=== PATIENT | female | born 1945 | race African-American/Black ===

== ENCOUNTER 2018-07-07 16:21 | Inpatient (IN) ==
--- NOTE | 2018-07-07 17:29 | ED ---
HPI General Chief Complaint: Neuro Symptoms/Deficit Stated Complaint: Medical Time Seen by Provider: 07/07/18 17:03 Source: patient and family Mode of arrival: EMS Limitations: no limitations History of Present Illness HPI Narrative: 72-year-old female complains of left-sided facial numbness and left forearm left hand numbness. Patient states that the symptoms started about 2 hours prior to arrival. Patient was outside of the house and started having left-sided facial numbness and left forearm left hand numbness. Patient went inside and called her daughter on the phone. Blood pressure at that time was 177/103. Patient started having frontal headache aching headache and started intermittent nausea vomiting. Patient recheck her blood pressure again was 1 9102. Patient was brought to the emergency room for evaluation. Upon arrival blood pressure 188/91. Patient has history hypertension, stomach ulcer , bleeding ulcer. Patient status post cholecystectomy in the past. Patient denies history of diabetes or hyperlipidemia. Patient is a non-smoker. Patient denies history of TIA or CVA. Onset (ago): hour(s) Time: 17:58 Last Observed Normal: 15:00 Timing confirmed by: family member Location: left face and left arm History of same: No Severity: mild Quality: numb Relieving factors: none Exacerbating factors: none Context: sudden onset On Anticoagulants: No Associated symptoms: headaches Treatments Prior to Arrival: none Related Data Home Medications Medication Instructions Recorded Confirmed atenolol 50 mg PO DAILY 07/07/18 07/07/18 cyanocobalamin (vitamin B-12) 2,500 mcg SUBLINGUAL DAILY 07/07/18 07/07/18 [Vitamin B-12] magnesium glycinate 400 mg PO DAILY 07/07/18 07/07/18 omeprazole 20 mg PO DAILY 07/07/18 07/07/18 Allergies Allergy/AdvReac Type Severity Reaction Status Date / Time aspirin AdvReac Severe ULCER Verified 07/07/18 19:28 Review of Systems ROS: all other systems reviewed are negative [facility] Medical History Medical History HTN (hypertension) (Acute) Ulcer (Acute) Surgical History Surgical History Hx of cholecystectomy (Acute) Social History Social History Substance History: No History of Abuse Second Hand Smoke Exposure: No Smoking Status: Never smoker How Often Do You Have a Drink Containing Alcohol: Never Recent Travel in [facility] within the Last 8 Weeks: No Recent Out of Country Travel within the Last 8 Weeks: No Immunization History Tetanus Immunization: >5 Years Exam Narrative Exam Narrative: GENERAL: Well-nourished, well-developed patient. SKIN: Focused skin assessment warm/dry. HEAD: Normocephalic. EYES: No scleral icterus. No injection or drainage. Pupils 1.5 mm equal reactive. NECK: Supple, trachea midline. No JVD or lymphadenopathy. CARDIOVASCULAR: Regular rate and rhythm without murmurs, gallops, or rubs. RESPIRATORY: Breath sounds equal bilaterally. No accessory muscle use. GASTROINTESTINAL: Abdomen soft, non-tender, nondistended. MUSCULOSKELETAL: No cyanosis, or edema. BACK: Nontender without obvious deformity. No CVA tenderness. Neurologic exam: Patient has decrease in light touch sensation on the left side of face, anterior aspect left forearm and palm aspect the left hand. Full range of motion of upper and lower extremity. No focal weakness on the upper or lower extremity. Course Initial Documented Vital Signs Temperature 97.8 F 07/07/18 16:36 Pulse Rate 77 07/07/18 16:36 Respiratory Rate 19 07/07/18 16:36 Blood Pressure 188/91 H 07/07/18 16:36 Pulse Oximetry 95 07/07/18 16:36 Last Documented Vital Signs Temperature 98.0 F 07/08/18 04:00 Pulse Rate 76 07/08/18 04:00 Respiratory Rate 16 07/08/18 04:00 Blood Pressure 137/73 07/08/18 04:00 Pulse Oximetry 97 07/08/18 04:00 Sign Out Sign Out Data: Patient Sign Out occurred on 07/07/18 at 20:02. Patient's care was discussed, and care was transferred from Terry Julien to Jourdan José MD. Sign Out Comment: Patient with left facial numbness and left arm and left hand numbness. Check CT and MRI. Last updated by Terry Julien MD at 07/07/18 19:18 Post-Handoff Eval: Patient was initially evaluated by Dr. Julien. See his note for further details. On my assessment the patient is awake and alert and has no focal deficits. She states that most of her left-sided numbness has improved, however she still has some numbness in her hand as well as a frontal headache. Imaging studies including MRI MRA brain, CTA/CT brain, MRA carotids were reviewed and are unremarkable. I again discussed the case with on-call neurologist Dr. Dupree. The patient will be admitted to the medical service for echocardiogram and overnight observation to complete CVA/TIA workup. Case discussed with Dr Dyer who will admit the patient to her service. Medical Decision Making MDM Narrative Medical decision making narrative: 72-year-old female with left-sided facial numbness and left forearm and left hand numbness. Symptoms started about 2 hours prior to arrival. I spoke with neurologist on-call, Dr. Dupree. Patient is not a stroke alert patient and TPA is not indicated at this point. We will proceed with a workup for acute CVA. Normal saline solution 70 cc an hour. Head of bed flat. O2 2 L nasal cannula. Patient was signed out to Dr. José. Medical Screen Exam Complete: Yes Emergency Medical Condition: Yes Lab Data Lab results reviewed: Yes I reviewed the patient's lab results. Result diagrams: 07/07/18 17:25 07/07/18 17:25 Lab Results 07/07/18 07/07/18 07/07/18 Range/Units 17:25 17:25 17:25 WBC 2.4 L (4.0-11.0) th/mm3 RBC 3.73 L (4.00-5.30) mil/mm3 Hgb 11.1 L (11.6-15.3) gm/dL Hct 31.7 L (35.0-46.0) % MCV 85.0 (80.0-100.0) fL MCH 29.7 (27.0-34.0) pg MCHC 34.9 (32.0-36.0) % RDW 13.6 (11.6-17.2) % Plt Count 74 L (150-450) th/mm3 MPV 8.8 (7.0-11.0) fL Prelim Diff (Auto) Slide review pending Neut % (Auto) 69.5 (16.0-70.0) % Lymph % (Auto) 24.7 (9.0-44.0) % [place] % (Auto) 5.1 (0.0-8.0) % Eos % (Auto) 0.5 (0.0-4.0) % Baso % (Auto) 0.2 (0.0-2.0) % Neut # (Auto) 1.7 L (1.8-7.7) th/mm3 Lymph # (Auto) 0.6 L (1.0-4.8) th/mm3 [place] # (Auto) 0.1 (0.0-0.9) th/mm3 Eos # (Auto) 0.0 (0.0-0.4) th/mm3 Baso # (Auto) 0.0 (0.0-0.2) th/mm3 WBC Differential . Diff Scan Auto diff confirmed Differential Comment . Platelet Estimate Low L (Normal) Platelet Morphology Enlarged H (Normal) PT 11.3 (9.8-11.6) sec INR 1.1 Ratio APTT 27.0 (24.3-30.1) sec Sodium 143 (136-145) meq/L Potassium 3.7 (3.5-5.1) meq/L Chloride 106 (98-107) meq/L Carbon Dioxide 28.5 (21.0-32.0) meq/L Anion Gap 9 (5-15) meq/L BUN 20 H (7-18) mg/dL Creatinine 0.85 (0.50-1.00) mg/dL Estimated GFR 80 L (>89) mL/min Random Glucose 74 (74-106) mg/dL Calcium 8.4 L (8.5-10.1) mg/dL Total Bilirubin 0.5 (0.2-1.0) mg/dL AST 21 (15-37) U/L ALT 19 (10-53) U/L Alkaline Phosphatase 46 (45-117) U/L Total Protein 8.1 (6.4-8.2) g/dL Albumin 4.2 (3.4-5.0) g/dL Urine Color (Yellw/Straw) Urine Clarity (Clear) Urine pH (5.0-8.5) Ur Specific [place] (1.002-1.035) Urine Protein (Neg-Trace) mg/dL Urine Glucose (UA) (Negative) mg/dL Urine Ketones (Negative) mg/dL Urine Occult Blood (Negative) Urine Nitrate (Negative) Urine Bilirubin (Negative) Urine Urobilinogen (Less than 2) mg/dL Ur Leukocyte Esterase (Negative) Urine WBC (0-5) /hpf Micro UA Comment Ur Microscopic Review Urine Culture Comments 07/07/18 Range/Units 17:46 WBC (4.0-11.0) th/mm3 RBC (4.00-5.30) mil/mm3 Hgb (11.6-15.3) gm/dL Hct (35.0-46.0) % MCV (80.0-100.0) fL MCH (27.0-34.0) pg MCHC (32.0-36.0) % RDW (11.6-17.2) % Plt Count (150-450) th/mm3 MPV (7.0-11.0) fL Prelim Diff (Auto) Neut % (Auto) (16.0-70.0) % Lymph % (Auto) (9.0-44.0) % [place] % (Auto) (0.0-8.0) % Eos % (Auto) (0.0-4.0) % Baso % (Auto) (0.0-2.0) % Neut # (Auto) (1.8-7.7) th/mm3 Lymph # (Auto) (1.0-4.8) th/mm3 [place] # (Auto) (0.0-0.9) th/mm3 Eos # (Auto) (0.0-0.4) th/mm3 Baso # (Auto) (0.0-0.2) th/mm3 WBC Differential Diff Scan Differential Comment Platelet Estimate (Normal) Platelet Morphology (Normal) PT (9.8-11.6) sec INR Ratio APTT (24.3-30.1) sec Sodium (136-145) meq/L Potassium (3.5-5.1) meq/L Chloride (98-107) meq/L Carbon Dioxide (21.0-32.0) meq/L Anion Gap (5-15) meq/L BUN (7-18) mg/dL Creatinine (0.50-1.00) mg/dL Estimated GFR (>89) mL/min Random Glucose (74-106) mg/dL Calcium (8.5-10.1) mg/dL Total Bilirubin (0.2-1.0) mg/dL AST (15-37) U/L ALT (10-53) U/L Alkaline Phosphatase (45-117) U/L Total Protein (6.4-8.2) g/dL Albumin (3.4-5.0) g/dL Urine Color Straw (Yellw/Straw) Urine Clarity Clear (Clear) Urine pH 7.0 (5.0-8.5) Ur Specific [place] 1.005 (1.002-1.035) Urine Protein Negative (Neg-Trace) mg/dL Urine Glucose (UA) Negative (Negative) mg/dL Urine Ketones Trace H (Negative) mg/dL Urine Occult Blood Negative (Negative) Urine Nitrate Negative (Negative) Urine Bilirubin Negative (Negative) Urine Urobilinogen Less than 2 (Less than 2) mg/dL Ur Leukocyte Esterase Trace H (Negative) Urine WBC 1 (0-5) /hpf Micro UA Comment Culture not ind Ur Microscopic Review Not Reportable Urine Culture Comments Culture not ind Imaging Data Radiologist's impression: Chest X-Ray 07/07/18 17:18 CONCLUSION: Negative examination. Head CT 07/07/18 17:18 CONCLUSION: 1. No acute hemorrhage, mass or evidence of infarction Head CTA 07/07/18 17:30 CONCLUSION: 1. Unremarkable exam. Head MRI 07/07/18 17:30 CONCLUSION: 1. No acute hemorrhage, mass or infarction. Head MRA 07/07/18 17:30 CONCLUSION: 1. Unremarkable exam. Neck CTA 07/07/18 17:30 CONCLUSION: 1. Unremarkable examination. Neck MRA 07/07/18 17:30 CONCLUSION: 1. Two-vessel bovine-type origin of the great vessels. 2. No carotid stenosis. 3. The vertebral arteries and basilar artery are intact. Percent stenosis is calculated using the diameter of the stenotic region over the diameter of the normal distal internal carotid artery Discharge Plan Discharge Disposition Patient Disposition: 30 Still Patient Physicians Team ED Provider: Jourdan José Primary Care Provider: Shane Alvares Attending Provider: William Rousseau Other Providers: Shauna Dupree Discharge Interventions Interventions: ED Discharge Assessment Last Done: 07/07/18 23:27 Vital Signs Last Done: 07/07/18 17:32 Status ED Status: Left Department Discharge Information Discharge Date/Time: 07/07/18 23:25
[2018-07-07] MEDS ORDERED: Sod Chloride 0.9% Inj 1,000 ML IV.CONT SCH (17:30)
--- NOTE | 2018-07-07 17:36 | XR ---
EXAM DATE: 07/07/2018 5:34 PM EDT AGE/SEX: 72 years / Female INDICATIONS: Shortness of breath. CLINICAL DATA: This is the patient's initial encounter. Patient reports that signs and symptoms have been present for 1 day and indicates a pain score of 0/10. MEDICAL/SURGICAL HISTORY: Hypertension. None. COMPARISON: No prior exams available for comparison. FINDINGS: A single AP view of the chest demonstrates the lungs to be symmetrically aerated without evidence of mass, infiltrate or effusion. The cardiomediastinal contours are unremarkable. Osseous structures a re intact. CONCLUSION: Negative examination. Electronically signed by: Shandra Kelely MD 07/07/2018 5:34 PM EDT
[2018-07-07 18:09] LABS: Baso % (Auto) 0.2 % (0.0-2.0); Eos % (Auto) 0.5 % (0.0-4.0); Hematocrit 31.7 % (35.0-46.0); Hemoglobin 11.1 gm/dL (11.6-15.3); Lymph # (Auto) 0.6 th/mm3 (1.0-4.8); Lymph % (Auto) 24.7 % (9.0-44.0); Mean Corpuscular HGB Conc 34.9 % (32.0-36.0); Mean Corpuscular Hemoglobin 29.7 pg (27.0-34.0); Mean Platelet Volume 8.8 fL (7.0-11.0); Mono # (Auto) 0.1 th/mm3 (0.0-0.9); Mono % (Auto) 5.1 % (0.0-8.0); Neut # (Auto) 1.7 th/mm3 (1.8-7.7); Neut % (Auto) 69.5 % (16.0-70.0); Platelet Count 74 th/mm3 (150-450); Red Blood Count 3.73 mil/mm3 (4.00-5.30); Red Cell Distribution Width 13.6 % (11.6-17.2); White Blood Count 2.4 th/mm3 (4.0-11.0)
[2018-07-07 18:19] LABS: Bilirubin,Urine Negative (Negative); Clarity,Urine Clear (Clear); Color,Urine Straw (Yellw/Straw); Glucose,Urine (UA) Negative (Negative); Leukocyte Esterase,Urine Trace (Negative); Nitrite,Urine Negative (Negative); Specific Gravity,Urine 1.005 (1.002-1.035)
[2018-07-07 18:27] LABS: INR 1.1 Ratio; Prothrombin Time 11.3 sec (9.8-11.6)
[2018-07-07 18:33] LABS: Alanine Aminotransferase 19 U/L (10-53); Albumin 4.2 g/dL (3.4-5.0); Anion Gap 9 meq/L (5-15); Aspartate Aminotransferase 21 U/L (15-37); Blood Urea Nitrogen 20 mg/dL (7-18); Calcium 8.4 mg/dL (8.5-10.1); Carbon Dioxide 28.5 meq/L (21.0-32.0); Chloride 106 meq/L (98-107); Glomerular Filtration Rate 80 mL/min (>89); Glucose,Random 74 mg/dL (74-106); Potassium 3.7 meq/L (3.5-5.1); Sodium 143 meq/L (136-145)
[2018-07-07 18:35] LABS: Alkaline Phosphatase 46 U/L (45-117); Total Protein 8.1 g/dL (6.4-8.2)
[2018-07-07] MEDS ORDERED: Gadobutrol PF 10 MMOL/10 ML Vial (for RAD) IV.SIG ONE (19:13)
--- NOTE | 2018-07-07 19:25 | MR ---
EXAM DATE: 07/07/2018 7:21 PM EDT AGE/SEX: 72 years / Female INDICATIONS: Left sided weakness. CLINICAL DATA: This is the patient's initial encounter. Patient reports that signs and symptoms have been present for 1 day and indicates a pain score of 0/10. MEDICAL/SURGICAL HISTORY: Hypertension. Cholecystectomy. COMPARISON: No prior exams available for comparison. TECHNIQUE: Multiplanar, multisequence examination of the brain was performed without contrast. FINDINGS: Cerebrum: The ventricles are normal for age. No evidence of midline shift, mass lesion, hemorrhage or acute infarction. No extraaxial fluid collections are seen. The pituitary gland and suprasellar cistern are normal in configuration. White Matter: No significant signal abnormalities are seen in the white matter. Posterior Fossa: The cerebellum and brainstem are intact. The 4th ventricle is midline. The cerebel lopontine angle is unremarkable. The cerebellar tonsils are normal in position. Diffusion Imaging: No focal areas of restricted diffusion are seen. No evidence of acute infarction . Extracranial: The visualized portions of the orbits and paranasal sinuses are unremarkable. CONCLUSION: 1. No acute hemorrhage, mass or infarction. Electronically signed by: Juan Webb MD 07/07/2018 7:24 PM EDT
--- NOTE | 2018-07-07 19:27 | MR ---
EXAM DATE: 07/07/2018 7:21 PM EDT AGE/SEX: 72 years / Female INDICATIONS: Left sided weakness. CLINICAL DATA: This is the patient's initial encounter. Patient reports that signs and symptoms have been present for 1 day and indicates a pain score of 0/10. MEDICAL/SURGICAL HISTORY: Hypertension. Cholecystectomy. COMPARISON: [facility] [place], MR HEAD W/O CONTRAST, 07/07/2018. . TECHNIQUE: 3D [id number] MRA was performed. Source images, multiplanar STS MIP, and 3D volum e MIP reconstructions were reviewed. FINDINGS: There is excellent visualization of the major intracranial arteries out to the second-order branch ve ssels. There is no evidence for aneurysm, vessel truncation or stenosis, and no evidence for vascula r malformation. CONCLUSION: 1. Unremarkable exam. Electronically signed by: Juan Webb MD 07/07/2018 7:26 PM EDT
--- NOTE | 2018-07-07 19:41 | MR ---
EXAM DATE: 07/07/2018 7:29 PM EDT AGE/SEX: 72 years / Female INDICATIONS: . Left side weakness. CLINICAL DATA: This is the patient's initial encounter. Patient reports that signs and symptoms have been present for 1 day and indicates a pain score of 0/10. MEDICAL/SURGICAL HISTORY: Hypertension. Cholecystectomy. COMPARISON: No prior exams available for comparison. TECHNIQUE: 10 ml Gadavist (gadobutrol) contrast infused MRA (single exam dose) of the extracranial circulation was performed using a neurovascular coil. Postprocessing was performed, including rotati ng sub-volume maximum intensity projections of each carotid artery, rotating full-volume maximum inte nsity projections of both carotid arteries, sagittal and coronal sliding thin-slab reformations of ea ch carotid artery, and left oblique sliding thin-slab reformation through the aortic arch to include the origin of the arch branch vessels. FINDINGS: Aortic Arch : There is a two-vessel bovine type origin of the great vessels from the aorta. No margot dence of ostial narrowing. Right Carotid : The common carotid artery is intact. The carotid bulb has a normal configuration wi thout ulceration or narrowing. The internal carotid artery lumen is smooth without stenosis. The ex ternal carotid artery is intact. Left Carotid : The common carotid artery is intact. The carotid bulb has a normal configuration wit hout ulceration or narrowing. The internal carotid artery lumen is smooth without stenosis. The ext ernal carotid artery is intact. Vertebrals : The vertebral arteries have a symmetric diameter. No stenotic lesions are seen. CONCLUSION: 1. Two-vessel bovine-type origin of the great vessels. 2. No carotid stenosis. 3. The vertebral arteries and basilar artery are intact. Percent stenosis is calculated using the diameter of the stenotic region over the diameter of the nor mal distal internal carotid artery Electronically signed by: Juan Webb MD 07/07/2018 7:39 PM EDT
[2018-07-07] MEDS ORDERED: Acetaminophen 325 MG Tablet PO ONE (20:03)
--- NOTE | 2018-07-07 20:07 | CT ---
EXAM DATE: 07/07/2018 7:59 PM EDT AGE/SEX: 72 years / Female INDICATIONS: Right sided headaches with facial numbness. CLINICAL DATA: This is the patient's initial encounter. Patient reports that signs and symptoms have been present for 1 day and indicates a pain score of 8/10. MEDICAL/SURGICAL HISTORY: Hypertension. Cholecystectomy. RADIATION DOSE: 56.35 CTDI (mGy) COMPARISON: [facility] [place], MR HEAD W/O CONTRAST, 07/07/2018. . TECHNIQUE: CT of the head without contrast. Using automated exposure control and adjustment of the mA and/or kV according to patient size, radiation dose was kept as low as reasonably achievable to ob tain optimal diagnostic quality images. DICOM format image data is available electronically for revi ew and comparison. FINDINGS: Cerebrum: The ventricles are normal for age. No evidence of midline shift, mass lesion, hemorrhage or acute infarction. No extraaxial fluid collections are seen. Posterior Fossa: The cerebellum and brainstem are intact. The 4th ventricle is midline. The cerebe llopontine angle is unremarkable. Extracranial: The visualized portion of the orbits is intact. Skull: The calvaria is intact. No evidence of skull fracture. CONCLUSION: 1. No acute hemorrhage, mass or evidence of infarction Electronically signed by: Juan Webb MD 07/07/2018 8:05 PM EDT
--- NOTE | 2018-07-07 20:32 | CT ---
EXAM DATE: 07/07/2018 8:09 PM EDT AGE/SEX: 72 years / Female INDICATIONS: Right sided headaches with facial numbness. CLINICAL DATA: This is the patient's initial encounter. Patient reports that signs and symptoms have been present for 1 day and indicates a pain score of 8/10. MEDICAL/SURGICAL HISTORY: Hypertension. Cholecystectomy. RADIATION DOSE: 10.26 CTDI (mGy) COMPARISON: [facility] [place] [facility] [place] W/O CONTRAST, 07/07/2018. . TECHNIQUE: Volumetric scanning was performed using a multi-row detector CT scanner during bolus infu [place] of 80 ml Omnipaque 350 (iohexol) nonionic water-soluble contrast as a cumulative dose for multi ple exams. The data was post processed with a variety of visualization algorithms including full vo lume maximum intensity projection, multi-planar sliding thin slab reformation, curved planar reformat ion, and surface rendering techniques. Using automated exposure control and adjustment of the mA and /or kV according to patient size, radiation dose was kept as low as reasonably achievable to obtain o ptimal diagnostic quality images. DICOM format image data is available electronically for review and comparison. FINDINGS: There is excellent visualization of the major intracranial arteries out to the second-order branch ve ssels. There is no evidence for aneurysm, vessel truncation or stenosis, and no evidence for vascula r malformation. CONCLUSION: 1. Unremarkable exam. Electronically signed by: Juan Webb MD 07/07/2018 8:29 PM EDT
[2018-07-07] MEDS ORDERED: Aspirin 300 MG Supp RECTAL ONE (20:37)
[2018-07-07] MEDS ORDERED: Dextrose 50% in Water 50 ML Vial IV.PUSH PRN (20:53)
--- NOTE | 2018-07-07 21:10 | P.HPIM ---
History of Present Illness Primary Care Physician: Shane Alvares MD History of Present Illness: This is a 72-year-old female with a PMH of HTN, h/o GI Bleed and Pancytopenia who presented to the ER w/ left facial numbness and left hand numbness. States symptoms started earlier this afternoon, no h/o similar symptoms in the past. Denies facial droop, slurred speech or weakness. CT Head w/ no acute findings, Dr. Dupree consulted however pt not TPA candidate, recommendation for further work up of CVA. CTA Head/Neck negative, MRI/MRA Head/Neck negative. On arrival , BP 188/91, HR 77, O2 sat 95% on RA, Afebrile. WBC 2.4. Hemoglobin 11.1. Platelets 74, previously WBC 3.7, Hgb 11.4 and platelets 72 on 05/06/14. Previously seen by Dr. Saunders for Pancytopenia, however pt and family opted against further work up and BM biopsy due to her age and risks. S/p ASA in ER. Pt states currently improved, however still w/ residual numbness to left fingers. - Diagnosis (1) CVA (cerebral vascular accident) (2) Pancytopenia (3) HTN (hypertension) Review of Systems PAST FAMILY HISTORY: Reviewed. No h/o DM or CAD All other systems reviewed negative except as stated in HPI PMFSH - History History Provided By: Patient, Family Member - Medical History Medical History: Medical History (Last Reviewed 07/07/18 @ 17:59 by Terry Julien MD) HTN (hypertension) Ulcer - Surgical History Surgical History: Surgical History (Last Reviewed 07/07/18 @ 17:59 by Terry Julien MD) Hx of cholecystectomy - Tobacco History Smoking Status: Never smoker - Alcohol History How Often Do You Have a Drink Containing Alcohol: Never - Substance Use History Substance History: No History of Abuse - Travel History Recent Travel in the [place] Within the Last 8 Weeks: No Recent Travel Out of the Country Within the Last 8 Weeks: No - Immunization History Tetanus Immunization: >5 Years Medications and Allergies Active Medications: Active Medications Dextrose (D50w Vial) 50 ml IV.PUSH UNSCH PRN PRN Reason: PER HYPOGLYCEMIA PROTOCOL Enalaprilat (Vasotec Inj) 1.25 mg IV.PUSH Q4H PRN PRN Reason: For SBP > 220 or DBP > 120 Glucagon (Glucagon Inj) 1 mg OTHER UNSCH PRN PRN Reason: for Hypoglycemia Protocol Sodium Chloride (Ns Inj) 1,000 mls @ 70 mls/hr IV.CONT .[id number] IMMANUEL Stop: 07/08/18 07:47 Last Admin: 07/07/18 17:32 Dose: 70 mls/hr Insulin Aspart (Novolog Insulin Correctional Sugar Inj) 0 unit SQ ACHS IMMANUEL; Protocol Ondansetron HCl (Zofran Inj) 4 mg IV.PUSH Q6H PRN PRN Reason: NAUSEA OR VOMITING Sodium Chloride (Ns Flush) 2 ml IV.FLUSH BID IMMANUEL Sodium Chloride (Ns Flush) 2 ml IV.FLUSH PRN PRN PRN Reason: FLUSH AFTER USING IV ACCESS Allergies Allergy/AdvReac Type Severity Reaction Status Date / Time aspirin AdvReac Severe ULCER Verified 07/07/18 19:28 Home Medications Medication Instructions Recorded Confirmed Type atenolol 50 mg PO DAILY 07/07/18 07/07/18 History cyanocobalamin (vitamin B-12) 2,500 mcg SUBLINGUAL DAILY 07/07/18 07/07/18 History [Vitamin B-12] magnesium glycinate 400 mg PO DAILY 07/07/18 07/07/18 History omeprazole 20 mg PO DAILY 07/07/18 07/07/18 History Exam Vital signs: Vital Signs 07/07/18 16:36 07/07/18 17:32 Temperature 97.8 F Pulse Rate 77 72 Respiratory Rate 19 19 Blood Pressure 188/91 H 164/79 H Pulse Oximetry 95 99 Intake & Output 07/07/18 07/07/18 07/08/18 06:59 18:59 06:59 Weight 77.111 kg Narrative: PE: GENERAL: Very pleasant elderly female in no acute distress. Normal speech SKIN: Focused skin assessment warm and dry. HEENT: PERRLA, EOMI. No scleral icterus or conjunctival pallor. No lid lag or facial droop. CARDIOVASCULAR: Regular rate and rhythm. No obvious murmurs to auscultation. No chest tenderness to palpation. RESPIRATORY: No obvious rhonchi or wheezing. Clear to auscultation. Breath sounds equal bilaterally. GASTROINTESTINAL: Abdomen soft, non-tender, nondistended. BS normal. MUSCULOSKELETAL: Extremities without clubbing, cyanosis, or edema. No obvious deformities. NEUROLOGICAL: Awake, alert and oriented x4. Numbness left hand fingers, no motor weakness, strength 5/5 all extremities. Moving both upper and lower extremities spontaneously. PSYCHIATRIC: Appropriate mood and affect. Insight and judgment normal. Results - Labs CBC & Chem 7: 07/07/18 17:25 07/07/18 17:25 Labs: Short CBC 07/07/18 Range/Units 17:25 WBC 2.4 L (4.0-11.0) th/mm3 Hgb 11.1 L (11.6-15.3) gm/dL Hct 31.7 L (35.0-46.0) % Plt Count 74 L (150-450) th/mm3 BMP 07/07/18 17:25 Sodium 143 Potassium 3.7 Chloride 106 Carbon Dioxide 28.5 BUN 20 H Creatinine 0.85 Calcium 8.4 L Liver Function 07/07/18 Range/Units 17:25 Total Bilirubin 0.5 (0.2-1.0) mg/dL AST 21 (15-37) U/L ALT 19 (10-53) U/L Alkaline Phosphatase 46 (45-117) U/L Albumin 4.2 (3.4-5.0) g/dL Urine 07/07/18 Range/Units 17:46 Urine Color Straw (Yellw/Straw) Urine Clarity Clear (Clear) Urine pH 7.0 (5.0-8.5) Ur Specific [place] 1.005 (1.002-1.035) Urine Protein Negative (Neg-Trace) mg/dL Urine Glucose (UA) Negative (Negative) mg/dL - Imaging Impressions Chest X-Ray 07/07/18 17:18 CONCLUSION: Negative examination. Head CT 07/07/18 17:18 CONCLUSION: 1. No acute hemorrhage, mass or evidence of infarction Head CTA 07/07/18 17:30 CONCLUSION: 1. Unremarkable exam. Head MRI 07/07/18 17:30 CONCLUSION: 1. No acute hemorrhage, mass or infarction. Head MRA 07/07/18 17:30 CONCLUSION: 1. Unremarkable exam. Neck MRA 07/07/18 17:30 CONCLUSION: 1. Two-vessel bovine-type origin of the great vessels. 2. No carotid stenosis. 3. The vertebral arteries and basilar artery are intact. Percent stenosis is calculated using the diameter of the stenotic region over the diameter of the normal distal internal carotid artery Caprini VTE Risk Assessment Caprini VTE Risk Assessment: No/Low Risk (score <= 1) Ninai Risk Assessment Model: Point Value = 1 Point Value = 2 Point Value = 3 Point Value = 5 Age 41-60 Minor surgery BMI > 25 kg/m2 Swollen legs Varicose veins or History of unexplained or recurrent spontaneous Oral contraceptives or hormone replacement Sepsis (< 1 month) Serious lung disease, including pneumonia (< 1 month) Abnormal pulmonary function Acute myocardial infarction Congestive heart failure (< 1 month) History of inflammatory bowel disease Medical patient at bed rest Age 61-74 Arthroscopic surgery Major open surgery (> 45 min) Laparoscopic surgery (> 45 min) Malignancy Confined to bed (> 72 hours) Immobilizing plaster cast Central venous access Age >= 75 History of VTE Family history of VTE Factor V Leiden Prothrombin [id number] Lupus anticoagulant Anticardiolipin antibodies Elevated serum homocysteine Heparin-induced thrombocytopenia Other congenital or acquired thrombophilia Stroke (< 1 month) Elective arthroplasty Hip, pelvis, or leg fracture Acute spinal cord injury (< 1 month) Prophylaxis Regimen: Total Risk Factor Score Risk Level Prophylaxis Regimen 0-1 Low Early ambulation 2 Moderate Order ONE of the following: *Sequential Compression Device (SCD) *Heparin 5000 units SQ BID 3-4 Higher Order ONE of the following medications: *Heparin 5000 units SQ TID *Enoxaparin/Lovenox 40 mg SQ daily (WT < 150 kg, CrCl > 30 mL/min) *Enoxaparin/Lovenox 30 mg SQ daily (WT < 150 kg, CrCl > 10-29 mL/min) *Enoxaparin/Lovenox 30 mg SQ BID (WT < 150 kg, CrCl > 30 mL/min) AND/OR *Sequential Compression Device (SCD) 5 or more Highest Order ONE of the following medications: *Heparin 5000 units SQ TID (Preferred with Epidurals) *Enoxaparin/Lovenox 40 mg SQ daily (WT < 150 kg, CrCl > 30 mL/min) *Enoxaparin/Lovenox 30 mg SQ daily (WT < 150 kg, CrCl > 10-29 mL/min) *Enoxaparin/Lovenox 30 mg SQ BID (WT < 150 kg, CrCl > 30 mL/min) AND *Sequential Compression Device (SCD) Assessment and Plan - Assessment (1) CVA (cerebral vascular accident) Code(s): I63.9 - Cerebral infarction, unspecified Status: Acute (2) Pancytopenia Code(s): D61.818 - Other pancytopenia Status: Acute (3) HTN (hypertension) Code(s): I10 - Essential (primary) hypertension Status: Acute - Plan A/P: 1. CVA: Acute onset left facial numbness and LUE numbness, now improved but not resolved. Dr. Dupree consulted, pt not TPA candidate. CT Head w/ no acute findings, CTA Head/Neck negative, MRI/MRA Head/Neck w/ no acute findings, images reviewed. Admit for further work up. Check Echo to eval for possible embolic event. Check Lipid Profile and Hgb A1c. HOB flat, NPO, IVF. Neuro checks q2hr. Consult Neurology for further recommendations. S/p ASA in ER, + pancytopenia, however no active bleeding at this time. Will await neurology recommendations on continuing ASA/anticoagulation in light of pancytopenia and h /o GI Bleed. 2. Pancytopenia: Chronic. Labs similar in comparison to previous labs from 05/06/14, previous eval by Dr. Saunders, however pt/family opted not to proceed w/ further work up or BM biopsy. Will monitor closely, no active bleeding at this time, repeat labs in am. 3. HTN: Uncontrolled, however will allow for permissive HTN in light of CVA. Vasotec prn for BP >220 systolic. 4. DVT Prophylaxis: SCD/Teds 5. Social work for d/c planning as needed 6. Case discussed w/ ER physician at length, labs/records/imaging reviewed by me.
--- NOTE | 2018-07-07 21:11 | CT ---
EXAM DATE: 07/07/2018 8:24 PM EDT AGE/SEX: 72 years / Female INDICATIONS: Right sided headaches with facial numbness. CLINICAL DATA: This is the patient's initial encounter. Patient reports that signs and symptoms have been present for 1 day and indicates a pain score of 0/10. MEDICAL/SURGICAL HISTORY: Hypertension. Cholecystectomy. RADIATION DOSE: 10.26 CTDI (mGy) ; Combined studies COMPARISON: No prior exams available for comparison. TECHNIQUE: Volumetric scanning was performed using a multirow detector CT scanner during bolus infus ion of 80 ml Omnipaque 350 (iohexol) nonionic water-soluble contrast as a cumulative dose for multip le exams. The data was postprocessed with a variety of visualization algorithms including full-volu me maximum intensity projection, multiplanar sliding thin-slab reformation, curved-planar reformation , and surface-rendering techniques. Using automated exposure control and adjustment of the mA and/or kV according to patient size, radiation dose was kept as low as reasonably achievable to obtain opti mal diagnostic quality images. DICOM format image data is available electronically for review and co mparison. FINDINGS: Aortic Arch: There is a three-vessel origin of the great vessels from the aorta. No evidence of ost ial narrowing Right Carotid: The common carotid artery is intact. The carotid bulb has a normal configuration wit hout ulceration or narrowing. The internal carotid artery lumen is smooth without stenosis. The ext ernal carotid artery is intact. Left Carotid: The common carotid artery is intact. The carotid bulb has a normal configuration with out ulceration or narrowing. The internal carotid artery lumen is smooth without stenosis. The exte rnal carotid artery is intact. Vertebrals: The vertebral arteries have a symmetric diameter. No stenotic lesions are seen. Percent stenosis is calculated using the diameter of the stenotic region over the diameter of the nor mal distal internal carotid artery. CONCLUSION: 1. Unremarkable examination. Electronically signed by: Juan Webb MD 07/07/2018 9:10 PM EDT
[2018-07-07] MEDS: Insulin NovoLOG Aspart Correctional Sugar Inj SQ SCH (22:30)
[2018-07-08 08:48] LABS: Baso % (Auto) 0.2 % (0.0-2.0); Eos % (Auto) 0.8 % (0.0-4.0); Hematocrit 30.7 % (35.0-46.0); Hemoglobin 10.8 gm/dL (11.6-15.3); Lymph # (Auto) 0.6 th/mm3 (1.0-4.8); Lymph % (Auto) 35.9 % (9.0-44.0); Mean Corpuscular HGB Conc 35.1 % (32.0-36.0); Mean Corpuscular Hemoglobin 30.1 pg (27.0-34.0); Mean Corpuscular Volume 85.6 fL (80.0-100.0); Mean Platelet Volume 8.6 fL (7.0-11.0); Mono # (Auto) 0.1 th/mm3 (0.0-0.9); Mono % (Auto) 5.5 % (0.0-8.0); Neut % (Auto) 57.6 % (16.0-70.0); Platelet Count 66 th/mm3 (150-450); Red Blood Count 3.59 mil/mm3 (4.00-5.30); Red Cell Distribution Width 13.4 % (11.6-17.2); White Blood Count 1.7 th/mm3 (4.0-11.0)
[2018-07-08 09:07] LABS: Albumin 3.9 g/dL (3.4-5.0); Anion Gap 8 meq/L (5-15); Aspartate Aminotransferase 24 U/L (15-37); Blood Urea Nitrogen 15 mg/dL (7-18); Calcium 8.4 mg/dL (8.5-10.1); Carbon Dioxide 25.2 meq/L (21.0-32.0); Chloride 108 meq/L (98-107); Glomerular Filtration Rate Greater Than 89 mL/min (>89); Glucose,Random 69 mg/dL (74-106); Potassium 3.4 meq/L (3.5-5.1); Sodium 141 meq/L (136-145)
[2018-07-08 09:08] LABS: Alanine Aminotransferase 18 U/L (10-53); Cholesterol 197 mg/dL (120-200); Triglycerides 76 mg/dL (42-150)
[2018-07-08 09:11] LABS: Alkaline Phosphatase 51 U/L (45-117); Chol/HDL Ratio 3.76 Ratio; HDL Cholesterol 52.3 mg/dL (40.0-60.0); LDL Cholesterol,Calculated 130 mg/dL (0-99); Total Protein 7.6 g/dL (6.4-8.2)
[2018-07-08 09:20] LABS: Lymphocytes 38 % (9-44); Monocytes 2 % (0-8)
[2018-07-08 09:21] LABS: Platelet Morphology Normal (Normal); RBC Morphology Normal (Normal)
[2018-07-08] MEDS: Insulin NovoLOG Aspart Correctional Sugar Inj SQ SCH ×4 (09:38→21:03)
[2018-07-08] MEDS: Atenolol 50 MG Tablet PO SCH (09:46)
[2018-07-08 10:19] LABS: Thyroid Stimulating Hormone 1.67 uIU/mL (0.358-3.740)
--- NOTE | 2018-07-08 11:34 | P.PN ---
Subjective Interval history: follow up for left facial and left hand numbness: Patient is awake, oriented 3. Patient speaks mainly [place], understands and speaks some Wolof. Indicates that she is now able to move fingertips on her left hand. She still has some residual numbness on the palmar aspect of the left hand and in fourth and fifth finger. Still with some dullness to sensation to left face (forehead , cheek, and chin). C/O headache again, left frontal. Endorses occasional dizziness when sitting or walking or suddenly turning. None recently. Physical Exam Vital signs: Vital Signs 07/07/18 16:36 07/07/18 17:32 07/07/18 22:31 Temperature 97.8 F Pulse Rate 77 72 69 Respiratory Rate 19 19 16 Blood Pressure 188/91 H 164/79 H 139/72 Pulse Oximetry 95 99 07/07/18 23:38 07/08/18 04:00 07/08/18 09:38 Temperature 98.1 F 98.0 F 97.8 F Pulse Rate 75 76 78 Respiratory Rate 16 16 18 Blood Pressure 127/60 137/73 178/82 H Pulse Oximetry 96 97 96 Intake & Output 07/07/18 07/08/18 07/08/18 18:59 06:59 18:59 Intake Total 500 / 500 Balance 500 / 500 Weight 77.111 kg Intake: IV 500 / 500 NS Inj 1,000 ML @ 70 mls/hr IV. 500 / 500 CONT .[id number] [facility] Rx#:[id number] Other: # Voids 1 Date of Last Bowel Movement 07/07/18 Narrative: GENERAL: Well-nourished, well-developed patient in no apparent distress. SKIN: Warm and dry. HEAD: Atraumatic. Normocephalic. EYES: Pupils equal and round. No scleral icterus. No injection or drainage. ENT: No nasal bleeding or discharge. Mucous membranes pink and moist. NECK: Trachea midline. No JVD. CARDIOVASCULAR: Regular rate and rhythm. RESPIRATORY: No accessory muscle use. Clear to auscultation. Breath sounds equal bilaterally. GASTROINTESTINAL: Abdomen soft, non-tender, nondistended. Hepatic and splenic margins not palpable. MUSCULOSKELETAL: Extremities without clubbing, cyanosis, or edema. No obvious deformities. NEUROLOGICAL: Awake and alert and oriented x 4. No obvious cranial nerve deficits. Motor grossly within normal limits. Five out of 5 muscle strength in the arms and legs. Normal speech. Dullness to sensation to left face and left hand palmar aspect and fingertips PSYCHIATRIC: Appropriate mood and affect; insight and judgment normal. Results - Labs CBC & Chem 7: 07/08/18 08:06 07/08/18 08:06 Laboratory Results - last 24 hr 07/07/18 07/07/18 07/07/18 17:25 17:25 17:25 WBC 2.4 L RBC 3.73 L Hgb 11.1 L Hct 31.7 L MCV 85.0 MCH 29.7 MCHC 34.9 RDW 13.6 Plt Count 74 L MPV 8.8 Prelim Diff (Auto) Slide review pending Neut % (Auto) 69.5 Lymph % (Auto) 24.7 [place] % (Auto) 5.1 Eos % (Auto) 0.5 Baso % (Auto) 0.2 Neut # (Auto) 1.7 L Lymph # (Auto) 0.6 L [place] # (Auto) 0.1 Eos # (Auto) 0.0 Baso # (Auto) 0.0 WBC Differential . Diff Scan Auto diff confirmed Seg Neuts % (Manual) Lymphocytes % (Manual) Monocytes % (Manual) Abs Neuts (Manual) Differential Comment . Platelet Estimate Low L Platelet Morphology Enlarged H RBC Morphology PT 11.3 INR 1.1 APTT 27.0 Sodium 143 Potassium 3.7 Chloride 106 Carbon Dioxide 28.5 Anion Gap 9 BUN 20 H Creatinine 0.85 Estimated GFR 80 L POC Glucose Random Glucose 74 Calcium 8.4 L Total Bilirubin 0.5 AST 21 ALT 19 Alkaline Phosphatase 46 Total Protein 8.1 Albumin 4.2 Triglycerides Cholesterol LDL Cholesterol, Calc HDL Cholesterol Cholesterol/HDL Ratio Vitamin B12 TSH Urine Color Urine Clarity Urine pH Ur Specific [place] Urine Protein Urine Glucose (UA) Urine Ketones Urine Occult Blood Urine Nitrate Urine Bilirubin Urine Urobilinogen Ur Leukocyte Esterase Urine WBC Micro UA Comment Ur Microscopic Review Urine Culture Comments 07/07/18 07/08/18 07/08/18 17:46 08:06 08:06 WBC 1.7 L RBC 3.59 L Hgb 10.8 L Hct 30.7 L MCV 85.6 MCH 30.1 MCHC 35.1 RDW 13.4 Plt Count 66 L MPV 8.6 Prelim Diff (Auto) Slide review pending Neut % (Auto) 57.6 Lymph % (Auto) 35.9 [place] % (Auto) 5.5 Eos % (Auto) 0.8 Baso % (Auto) 0.2 Neut # (Auto) 1.0 L Lymph # (Auto) 0.6 L [place] # (Auto) 0.1 Eos # (Auto) 0.0 Baso # (Auto) 0.0 WBC Differential Manual diff final Diff Scan Seg Neuts % (Manual) 60 Lymphocytes % (Manual) 38 Monocytes % (Manual) 2 Abs Neuts (Manual) 1.0 L Differential Comment . Platelet Estimate Low L Platelet Morphology Normal RBC Morphology Normal PT INR APTT Sodium 141 Potassium 3.4 L Chloride 108 H Carbon Dioxide 25.2 Anion Gap 8 BUN 15 Creatinine 0.73 Estimated GFR Greater than 89 POC Glucose Random Glucose 69 L Calcium 8.4 L Total Bilirubin 0.6 AST 24 ALT 18 Alkaline Phosphatase 51 Total Protein 7.6 Albumin 3.9 Triglycerides 76 Cholesterol 197 LDL Cholesterol, Calc 130 H HDL Cholesterol 52.3 Cholesterol/HDL Ratio 3.76 Vitamin B12 TSH Urine Color Straw Urine Clarity Clear Urine pH 7.0 Ur Specific [place] 1.005 Urine Protein Negative Urine Glucose (UA) Negative Urine Ketones Trace H Urine Occult Blood Negative Urine Nitrate Negative Urine Bilirubin Negative Urine Urobilinogen Less than 2 Ur Leukocyte Esterase Trace H Urine WBC 1 Micro UA Comment Culture not ind Ur Microscopic Review Not Reportable Urine Culture Comments Culture not ind 07/08/18 07/08/18 09:11 09:25 WBC RBC Hgb Hct MCV MCH MCHC RDW Plt Count MPV Prelim Diff (Auto) Neut % (Auto) Lymph % (Auto) [place] % (Auto) Eos % (Auto) Baso % (Auto) Neut # (Auto) Lymph # (Auto) [place] # (Auto) Eos # (Auto) Baso # (Auto) WBC Differential Diff Scan Seg Neuts % (Manual) Lymphocytes % (Manual) Monocytes % (Manual) Abs Neuts (Manual) Differential Comment Platelet Estimate Platelet Morphology RBC Morphology PT INR APTT Sodium Potassium Chloride Carbon Dioxide Anion Gap BUN Creatinine Estimated GFR POC Glucose 70 Random Glucose Calcium Total Bilirubin AST ALT Alkaline Phosphatase Total Protein Albumin Triglycerides Cholesterol LDL Cholesterol, Calc HDL Cholesterol Cholesterol/HDL Ratio Vitamin B12 1306 H TSH 1.670 Urine Color Urine Clarity Urine pH Ur Specific [place] Urine Protein Urine Glucose (UA) Urine Ketones Urine Occult Blood Urine Nitrate Urine Bilirubin Urine Urobilinogen Ur Leukocyte Esterase Urine WBC Micro UA Comment Ur Microscopic Review Urine Culture Comments - Imaging Impressions Chest X-Ray 07/07/18 17:18 CONCLUSION: Negative examination. Head CT 07/07/18 17:18 CONCLUSION: 1. No acute hemorrhage, mass or evidence of infarction Head CTA 07/07/18 17:30 CONCLUSION: 1. Unremarkable exam. Head MRI 07/07/18 17:30 CONCLUSION: 1. No acute hemorrhage, mass or infarction. Head MRA 07/07/18 17:30 CONCLUSION: 1. Unremarkable exam. Neck CTA 07/07/18 17:30 CONCLUSION: 1. Unremarkable examination. Neck MRA 07/07/18 17:30 CONCLUSION: 1. Two-vessel bovine-type origin of the great vessels. 2. No carotid stenosis. 3. The vertebral arteries and basilar artery are intact. Percent stenosis is calculated using the diameter of the stenotic region over the diameter of the normal distal internal carotid artery Assessment and Plan - Assessment (1) CVA (cerebral vascular accident) Code(s): I63.9 - Cerebral infarction, unspecified Status: Acute (2) Pancytopenia Code(s): D61.818 - Other pancytopenia Status: Acute (3) HTN (hypertension) Code(s): I10 - Essential (primary) hypertension Status: Acute - Plan A/P: 72-year-old female presented to the emergency room with acute onset of left facial numbness and left upper extremity numbness now improving but not resolved. Patient evaluated in the emergency room, not a TPA candidate. Initial CT no acute finding TIA- Acute onset left facial numbness and LUE numbness, now improved but not resolved. Dr. Dupree consulted, pt not TPA candidate. CT Head w/ no acute findings, CTA Head/Neck negative, MRI/MRA Head/Neck w/ no acute findings, images reviewed. Pt. also with uncontrolled BP -Echo done, pending -ASA 81 mg EC daily -Appreciate neurology input, D/W Dr. Dupree Pt. with hx of pancytopenia and GI bleed (gastric ulcers many years ago). Ok with ASA Pt. denies any sx, on Omeprasole. Continue with ASA for now. -Lipid profile results noted, will start Lipitor 20 mg po daily. -PT/OT/ST eval -neuro checks 1 4 -IVF ok to dc -Hemoglobin A 164.6 -sed rate elevated. We will check TSH, B12, RPR. Cephalgia Imaging studies negative for acute finding -Tylenol as needed -sed rate 32 Pancytopenia: Chronic. Labs similar in comparison to previous labs from 05/06/14 , previous eval by Dr. Saunders, however pt/family opted not to proceed w/ further work up or BM biopsy. -CBC reviewed, d/w pt and family. Recommend OP follow up with Dr. Saunders HTN: Uncontrolled, however will allow for permissive HTN in light of CVA. -Vasotec prn for BP >220 systolic. -will resume Atenolol today DVT Prophylaxis: SCD/Teds CM for dc planning, no needs at this time. Will follow up on echo report, poss dc today after echo is done d/w RN, pt and family, Dr. Dupree
[2018-07-08 11:37] LABS: Hemoglobin A1c 4.6 % (4.3-6.0)
--- NOTE | 2018-07-08 13:14 | ECHRPT ---
Indication: CVA/TIA CONCLUSIONS Wall thickness is normal. Normal left ventricular size. Mild mitral valve regurgitation. Mild aortic valve regurgitation. There is moderate tricuspid regurgitation. The estimated pulmonary arterial pressure is 38.5 mmHg. BP: / HR: 65 Rhythm: Sinus MEASUREMENTS (Male / Female) Normal Values Technical Quality:Good 2D ECHO LV Diastolic Diameter PLAX 3.6 cm 4.2 - 5.9 / 3.9 - 5.3 cm LV Systolic Diameter PLAX 2.5 cm IVS Diastolic Thickness 0.8 cm 0.6 - 1.0 / 0.6 - 0.9 cm LVPW Diastolic Thickness 0.8 cm 0.6 - 1.0 / 0.6 - 0.9 cm LV Relative Wall Thickness 0.4 LVOT Diameter 1.7 cm M-MODE Aortic Root Diameter MM 2.6 cm LA Systolic Diameter MM 2.7 cm LA Ao Ratio MM 1.0 AV Cusp Separation MM 1.9 cm DOPPLER AV Peak Velocity 143.0 cm/s AV Peak Gradient 8.2 mmHg AI Peak Velocity 433.5 cm/s AI Peak Gradient 75.2 mmHg AI Pressure Half Time 1082.5 ms LVOT Peak Velocity 108.0 cm/s LVOT Peak Gradient 4.7 mmHg AV Area Cont Eq pk 1.7 cm MR Peak Velocity 293.0 cm/s MR Peak Gradient 34.3 mmHg Mitral E Point Velocity 113.0 cm/s Mitral A Point Velocity 131.0 cm/s Mitral E to A Ratio 0.9 LV E' Lateral Velocity 8.8 cm/s Mitral E to LV E' Lateral Ratio 12.9 LV E' Septal Velocity 7.0 cm/s Mitral E to LV E' Septal Ratio 16.1 TR Peak Velocity 267.0 cm/s TR Peak Gradient 28.5 mmHg Right Atrial Pressure 10.0 mmHg Pulmonary Artery Systolic Pressu 38.5 mmHg Right Ventricular Systolic Press 38.5 mmHg PV Peak Velocity 107.0 cm/s PV Peak Gradient 4.6 mmHg FINDINGS LEFT VENTRICLE The left ventricular systolic function is normal with an estimated ejection fraction in the range of 60-65%. Wall thickness is normal. Normal left ventricular size. RIGHT VENTRICLE Normal right ventricular size and systolic function. LEFT ATRIUM The left atrial size is normal. RIGHT ATRIUM The right atrial size is normal. ATRIAL SEPTUM Normal atrial septal thickness without atrial level shunting by limited color doppler interrogation. AORTA The aortic root and proximal ascending aorta are normal in size on limited imaging. MITRAL VALVE Mild mitral valve regurgitation. AORTIC VALVE Mild aortic valve regurgitation. TRICUSPID VALVE There is moderate tricuspid regurgitation. The estimated pulmonary arterial pressure is 38.5 mmHg. PULMONARY VALVE No pulmonary valve regurgitation or stenosis. VESSELS The inferior vena cava is normal in size. PERICARDIUM No pericardial effusion. Wilian Lorenzo MD, FACC (Electronically Signed) Final Date:08 July 2018 13:13
[2018-07-08] MEDS: Acetaminophen 325 MG Tablet PO PRN (13:31)
[2018-07-08] MEDS ORDERED: Potassium Chloride 25 MEQ Effervescent Tablet PO ONE (13:33)
[2018-07-08] MEDS: predniSONE 20 MG Tablet PO SCH (16:18)
--- NOTE | 2018-07-08 17:23 | MB ---
cc: Shauna Dupree MD DATE: 07/08/2018 REASON FOR CONSULTATION: Stroke versus transient ischemic attack. HISTORY OF PRESENT ILLNESS: The patient is a 72-year-old woman with history of hypertension, neutropenia, GI bleed, came in with left facial numbness, left hand, arm numbness yesterday afternoon with difficulty speaking, possibly slurring of speech, not evolving, no leg involvement. CT of the head did not show any acute findings. I was told that she only had sensory deficits. No weakness. Her NIH was 1. At that point in time due to her low NIH stroke scale and improving symptoms, the patient did not deem a candidate for TPA. She had imaging of the brain, as well as labs. On arrival, she her blood pressure was 188/91. White count was 2.4. Currently, she has a headache and she has been having headache off and on, but no visual loss. Some temporal artery tenderness bilaterally. She still has minimal numbness over the left palm. PAST MEDICAL HISTORY: Leukopenia, hypertension, possible GI bleed, ulcer. PAST SURGICAL HISTORY: Cholecystectomy. SOCIAL HISTORY: Does not smoke, drink or use any illicit drugs. HOME MEDICATIONS: I do not have a list. PHYSICAL EXAMINATION: VITAL SIGNS: Temperature is 97.9, pulse 71, respiratory rate 18, blood pressure currently is 123/58. Prior to that, it was 178/82. NECK: Supple. HEART: Regular. NEUROLOGIC: She is awake, alert. She is oriented. She is hypophonic, but is not dysarthric or aphasic. Her pupils reactive. She does not have any temporal artery induration just some tenderness to palpation. Face is symmetrical, otherwise no facial dysesthesia. Motor is intact, symmetrical general expeditor. No drift or leg lag. She does have some decreased light touch over the left palm. Toes are downgoing. Cerebellar normal. Slightly slower random alternating movements on the left. Gait is cautious, but she is not ataxic. LABORATORY DATA: Pending. Urine: Trace ketones, trace leukocyte esterase. Chemistry: Potassium was 3.4 this morning, glucose 117. Hemoglobin A1c 4.6. LDL 130. B12 1306, TSH 1.670. Total cholesterol 197. Coag panel is normal. CBC: White count yesterday was 2.4, today is 1.7, hemoglobin 10.8, platelets 66,000. She does have some pancytopenia. IMAGES: She had an MRI of the brain. [place] and carotid all of which have been negative. The head MRI did not show any acute stroke. [place] MRA did not show any intracranial disease nor any carotid disease. IMPRESSION: Transient ischemic attack-like symptoms in a patient with a history of hypertension, looks like she is hyperlipidemic, and she is pancytopenic. I will put on a baby aspirin, but we need to be very cautious and watch her hemoglobin as well as her platelet count. If she cannot take one every day or every other day. She needs to follow up with Hematology for her pancytopenia. Echo came back a normal ejection fraction. I am also going to get a sedimentation rate and C-reactive protein to make sure this is not a temporal arteritis picture. Continue Tylenol for headache. Continue to keep her blood pressure normal and if stable and workup is negative, discharge planning most likely by tomorrow. MD JONATHAN Herrera/elizabeth , 02:04 PM , 02:18 PM
[2018-07-09] MEDS: Atenolol 50 MG Tablet PO SCH (08:26)
[2018-07-09] MEDS: predniSONE 20 MG Tablet PO SCH (08:27)
[2018-07-09] MEDS: Insulin NovoLOG Aspart Correctional Sugar Inj SQ SCH (08:34)
--- NOTE | 2018-07-09 09:34 | P.PN ---
Subjective Interval history: follow up for left facial and left hand numbness: Patient is awake, oriented 3. Left temporal tenderness with mild headache Tylenol helping. Left palmar surface numbness continues to improve, minimal numbness to left face, only a little bit of residual around lips. No chest pain, shortness of breath. Telemetry sinus rhythm. No difficulty swallowing. Blood pressure has been stable overnight. Physical Exam Vital signs: Vital Signs 07/08/18 09:38 07/08/18 12:00 07/08/18 16:00 Temperature 97.8 F 97.9 F 97.9 F Pulse Rate 78 71 66 Respiratory Rate 18 18 16 Blood Pressure 178/82 H 123/58 L 134/65 Pulse Oximetry 96 95 97 07/08/18 20:00 07/08/18 22:00 07/09/18 00:00 Temperature 97.8 F 96.9 F L Pulse Rate 62 57 L 91 H Respiratory Rate 17 17 Blood Pressure 141/77 H 112/80 Pulse Oximetry 98 98 07/09/18 04:00 07/09/18 08:00 Temperature 97.1 F L 97.6 F Pulse Rate 62 61 Respiratory Rate 17 16 Blood Pressure 117/64 157/89 H Pulse Oximetry 98 99 Intake & Output 07/08/18 07/09/18 07/09/18 18:59 06:59 18:59 Intake Total 1420 / 1420 Balance 1420 / 1420 Intake: IV 1000 / 1000 NS Inj 1,000 ML @ 70 mls/hr IV. 1000 / 1000 CONT .[id number] [facility] Rx#:[id number] Oral 420 / 420 Other: # Voids 6 # Urine Diapers 1 Date of Last Bowel Movement 07/07/18 Narrative: GENERAL: Well-nourished, well-developed patient in no apparent distress. SKIN: Warm and dry. HEAD: Atraumatic. Normocephalic. EYES: Pupils equal and round. No scleral icterus. No injection or drainage. ENT: No nasal bleeding or discharge. Mucous membranes pink and moist. NECK: Trachea midline. No JVD. CARDIOVASCULAR: Regular rate and rhythm. RESPIRATORY: No accessory muscle use. Clear to auscultation. Breath sounds equal bilaterally. GASTROINTESTINAL: Abdomen soft, non-tender, nondistended. Hepatic and splenic margins not palpable. MUSCULOSKELETAL: Extremities without clubbing, cyanosis, or edema. No obvious deformities. NEUROLOGICAL: Awake and alert and oriented x 4. No obvious cranial nerve deficits. Motor grossly within normal limits. Five out of 5 muscle strength in the arms and legs. Normal speech. Dullness to sensation to left face and left hand palmar aspect and fingertips PSYCHIATRIC: Appropriate mood and affect; insight and judgment normal. Results - Labs CBC & Chem 7: 07/08/18 08:06 07/08/18 08:06 Laboratory Results - last 24 hr 07/08/18 07/08/18 07/08/18 08:06 08:06 09:11 ESR 32 H POC Glucose Hemoglobin A1c 4.6 C-Reactive Protein Vitamin B12 1306 H TSH 1.670 07/08/18 07/08/18 07/08/18 09:11 09:25 12:12 ESR POC Glucose 70 117 H Hemoglobin A1c C-Reactive Protein Less than 0.29 Vitamin B12 TSH 07/08/18 07/08/18 07/09/18 17:14 21:00 08:25 ESR POC Glucose 109 130 H 82 Hemoglobin A1c C-Reactive Protein Vitamin B12 TSH Assessment and Plan - Assessment (1) CVA (cerebral vascular accident) Code(s): I63.9 - Cerebral infarction, unspecified Status: Acute (2) Pancytopenia Code(s): D61.818 - Other pancytopenia Status: Acute (3) HTN (hypertension) Code(s): I10 - Essential (primary) hypertension Status: Acute - Plan A/P: 72-year-old female presented to the emergency room with acute onset of left facial numbness and left upper extremity numbness now improving but not resolved. Patient evaluated in the emergency room, not a TPA candidate. Initial CT no acute finding TIA- Acute onset left facial numbness and LUE numbness, now improved but not resolved. Dr. Dupree consulted, pt not TPA candidate. CT Head w/ no acute findings, CTA Head/Neck negative, MRI/MRA Head/Neck w/ no acute findings, images reviewed. Pt. also with uncontrolled BP -Echo done, EF 60-65% moderate tricuspid regurgitation -ASA 81 mg EC daily -Appreciate neurology input, D/W Dr. Dupree Pt. with hx of pancytopenia and GI bleed (gastric ulcers many years ago). Ok with ASA Pt. denies any sx, on Omeprasole. Continue with ASA 81 mg, enteric-coated -Lipid profile results noted, continue Lipitor 20 mg po daily. -PT/OT/ST eval -neuro checks q 4 -Hemoglobin A 1 4.6 -sed rate mildly elevated 32 TSH ok, elevated B12 (on supplement at home), pending RPR. Cephalgia ? temporal arteritis. However, CRP negative and Sed rate minimally elevated. No vision changes. Imaging studies negative for acute finding Headache better today, doubtful that this is temporal arteritis. -Tylenol as needed -sed rate minimally elevated 32 -CRP normal Was started on prednisone 20 mg p.o. very minimal effect on headache, patient thinks that Tylenol is working better. Pancytopenia: Chronic. Labs similar in comparison to previous labs from 05/06/14 , previous eval by Dr. Saunders, however pt/family opted not to proceed w/ further work up or BM biopsy. -CBC reviewed, d/w pt and family. Recommend OP follow up with Dr. Saunders HTN: Uncontrolled, however will allow for permissive HTN in light of CVA. -Vasotec prn for BP >220 systolic. - Atenolol -Blood pressure well controlled DVT Prophylaxis: SCD/Teds CM for dc planning, no needs at this time. Patient stable for discharge, discussed with neurology Follow-up with Dr. Dupree as outpatient 1-2 weeks Follow-up with Dr. Saunders 1-2 weeks Follow heart healthy diet Activity as tolerated
[2018-07-09] MEDS: Acetaminophen 325 MG Tablet PO PRN (10:24)
--- NOTE | 2018-07-09 13:49 | P.DS ---
Date of admission: 07/07/18 21:13 Primary care physician: Shane Alvares MD Attending physician on discharge: William Rousseau Anticipated date of discharge: 07/09/18 Brief History from admission: This is a 72-year-old female with a PMH of HTN, h/o GI Bleed and Pancytopenia who presented to the ER w/ left facial numbness and left hand numbness. States symptoms started earlier this afternoon, no h/o similar symptoms in the past. Denies facial droop, slurred speech or weakness. CT Head w/ no acute findings, Dr. Dupree consulted however pt not TPA candidate, recommendation for further work up of CVA. CTA Head/Neck negative, MRI/MRA Head/Neck negative. On arrival , BP 188/91, HR 77, O2 sat 95% on RA, Afebrile. WBC 2.4. Hemoglobin 11.1. Platelets 74, previously WBC 3.7, Hgb 11.4 and platelets 72 on 05/06/14. Previously seen by Dr. Saunders for Pancytopenia, however pt and family opted against further work up and BM biopsy due to her age and risks. S/p ASA in ER. Pt states currently improved, however still w/ residual numbness to left fingers. DS: Diagnosis - Discharge Diagnosis (1) TIA (transient ischemic attack) Status: Acute (2) Pancytopenia Status: Acute (3) HTN (hypertension) Status: Acute DS: Medications - Discharge Medications Prescriptions: atorvastatin 20 mg PO HS 30 Days #30 tab DS: Summary Hospital Course: 72-year-old female presented to the emergency room with acute onset of left facial numbness and left upper extremity numbness now improving but not resolved. Patient evaluated in the emergency room, not a TPA candidate. Initial CT no acute finding TIA- Acute onset left facial numbness and LUE numbness, now improved but not resolved. Dr. Dupree consulted, pt not TPA candidate. CT Head w/ no acute findings, CTA Head/Neck negative, MRI/MRA Head/Neck w/ no acute findings, images reviewed. Pt. also with uncontrolled BP. Started on EC ASA 81 mg. Echo done, EF 60-65% moderate tricuspid regurgitation Appreciate neurology input, D/W Dr. Dupree Pt. with hx of pancytopenia and GI bleed (gastric ulcers many years ago). Ok with ASA Pt. denies any sx, on Omeprasole. Continue with ASA 81 mg, enteric-coated Lipid profile results noted, continue Lipitor 20 mg po daily. PT/OT/ST eval done, no need for HHC with therapies. neuro checks q 4-symptoms improved, minimal numbness. Hemoglobin A 1 4.6 sed rate mildly elevated 32 TSH ok, elevated B12 (on supplement at home), pending RPR. Had Cephalgia ? temporal arteritis. However, CRP negative and Sed rate minimally elevated. No vision changes. Imaging studies negative for acute finding Headache improved, doubtful that this is temporal arteritis. Tylenol as needed sed rate minimally elevated 32 CRP normal Was started on prednisone 20 mg p.o. very minimal effect on headache, patient thinks that Tylenol is working better. Prednisone dc'd Pancytopenia: Chronic. Labs similar in comparison to previous labs from 05/06/14 , previous eval by Dr. Saunders, however pt/family opted not to proceed w/ further work up or BM biopsy. CBC reviewed, d/w pt and family. Recommend OP follow up with Dr. Saunders HTN: Uncontrolled, however allowed for permissive HTN in light of CVA. Vasotec prn for BP >220 systolic. Continue with Atenolol Blood pressure well controlled Patient stable for discharge, discussed with neurology Follow-up with Dr. Dupree as outpatient 1-2 weeks Follow-up with Dr. Saunders 1-2 weeks Follow heart healthy diet Activity as tolerated - Time Spent with Patient Total time spent providing and/or coordinating discharge services:35 Greater than 30 minutes - Quality: VTE Deep Vein Thrombosis/Pulmonary Embolism Present on Admission: No Exam Vital signs: Vital Signs 07/08/18 16:00 07/08/18 20:00 07/08/18 22:00 Temperature 97.9 F 97.8 F Pulse Rate 66 62 57 L Respiratory Rate 16 17 Blood Pressure 134/65 141/77 H Pulse Oximetry 97 98 07/09/18 00:00 07/09/18 04:00 07/09/18 08:00 Temperature 96.9 F L 97.1 F L 97.6 F Pulse Rate 91 H 62 61 Respiratory Rate 17 17 16 Blood Pressure 112/80 117/64 157/89 H Pulse Oximetry 98 98 99 Intake & Output 07/08/18 07/09/18 07/09/18 18:59 06:59 18:59 Intake Total 1420 / 1420 Balance 1420 / 1420 Intake: IV 1000 / 1000 NS Inj 1,000 ML @ 70 mls/hr IV. 1000 / 1000 CONT .[id number] [facility] Rx#:[id number] Oral 420 / 420 Other: # Voids 6 # Urine Diapers 1 Date of Last Bowel Movement 07/07/18 Results Procedures completed during hospitalization: none Labs on day of discharge: Labs from last 24 hours 07/09/18 07/08/18 07/08/18 08:25 21:00 17:14 ESR POC Glucose 82 130 H 109 C-Reactive Protein 07/08/18 07/08/18 09:11 08:06 ESR 32 H POC Glucose C-Reactive Protein Less than 0.29 - Impressions ITS Impressions Chest X-Ray 07/07/18 17:18 CONCLUSION: Negative examination. Head CT 07/07/18 17:18 CONCLUSION: 1. No acute hemorrhage, mass or evidence of infarction Head CTA 07/07/18 17:30 CONCLUSION: 1. Unremarkable exam. Head MRI 07/07/18 17:30 CONCLUSION: 1. No acute hemorrhage, mass or infarction. Head MRA 07/07/18 17:30 CONCLUSION: 1. Unremarkable exam. Neck CTA 07/07/18 17:30 CONCLUSION: 1. Unremarkable examination. Neck MRA 07/07/18 17:30 CONCLUSION: 1. Two-vessel bovine-type origin of the great vessels. 2. No carotid stenosis. 3. The vertebral arteries and basilar artery are intact. Percent stenosis is calculated using the diameter of the stenotic region over the diameter of the normal distal internal carotid artery Discharge Plan - Discharge Disposition Patient Disposition: 01 Discharge Home - Discharge Condition Condition: Serious - Discharge Order Discharge Orders: Discharge Order (Routine); Ordered 07/09/18 Ordered By: Sudha Bernal - Discharge Details Anticipated Discharge Date: 07/08/18 Discharge Comment: wait for neurology to clear. - Physicians Team Primary Care Provider: Shane Alvares Attending Provider: William Rousseau Other Providers: Shauna Dupree MD
== END 2018-07-09 11:15 | disposition home or self-care (01) ==
LOC: NEDA 16:21 → NEPC 16:21 → OBSVTOIN 20:53 → NEPFCDU 22:32
PROVIDERS: ADMIT Hospitalist; ATTEND Hospitalist